=== PATIENT | female | born 1940 | race Caucasian/White ===

== ENCOUNTER 2021-02-27 10:40 | Day surgery (SDC) | payer MEDICARE ==
[~2021-02-27] VITALS: Ht 147.3 cm; Wt 125.8 kg
[2021-02-27 11:47] VITALS: BP 183/71
[2021-02-27] MEDS ORDERED: GLIPIZIDE PO (11:47)
[2021-02-27] MEDS ORDERED: HYDR12.517 PO (11:47)
[2021-02-27 11:57] LABS: ALANINE AMINOTRANSFERASE 26 U/L (12-78); ALBUMIN 3.8 g/dL (3.4-5.0); ANION GAP 5 mmol/L (5-15); CALCIUM 9.6 mg/dL (8.5-10.1); CHLORIDE 105 mmol/L (98-107); CREATININE 1.24 mg/dL (0.55-1.02)
[2021-02-27 11:59] LABS: ALKALINE PHOSPHATASE 147 U/L (45-117); BILIRUBIN,TOTAL 1.1 mg/dL (0.2-1.0); TOTAL PROTEIN 8.2 g/dL (6.4-8.2)
[2021-02-27] MEDS ORDERED: LACTATED RINGERS 1,000 ML IV SCH (12:00)
[2021-02-27] MEDS ORDERED: CHLORHEXIDINE 15 ML UDC PO ONE (12:00)
[2021-02-27] MEDS ORDERED: FENTANYL PF 100 MCG/2ML ONE (14:15)
[2021-02-27] MEDS ORDERED: BUPIVACAINE/PF 0.5% ONE (14:30)
[2021-02-27] MEDS ORDERED: EPINEPHRINE 1 MG/ML, 1ML ONE (14:30)
[2021-02-27] MEDS ORDERED: NEOSPORIN OINT, 15GM ONE (14:33)
[2021-02-27] MEDS ORDERED: DEXAMETHASONE 4 MG/ML, 1ML ONE (14:54)
[2021-02-27] MEDS ORDERED: PROPOFOL 10 MG/ML, 20ML ONE (15:58)
[2021-02-27] MEDS ORDERED: ONDANSETRON 2MG/ML, 2ML ONE (15:58)
[2021-02-27] MEDS ORDERED: CEFAZOLIN 1,000 MG ONE (15:58)
[2021-02-27] MEDS ORDERED: OXYcodone 5 MG/5 ML ORAL.SOL UDC PO PRN (16:00)
[2021-02-27] MEDS ORDERED: hydrALAzine 20 MG/ML, 1ML IV PRN (16:00)
[2021-02-27] MEDS ORDERED: HYDROmorphone 1 MG/ML, 1ML INJ IVPush PRN (16:00)
[2021-02-27] MEDS ORDERED: ALBUTEROL SULFATE 2.5 MG/3 ML NPPB PRN (16:00)
[2021-02-27] MEDS ORDERED: FENTANYL PF 100 MCG/2ML IV PRN (16:00)
[2021-02-27] MEDS ORDERED: ACETAMINOPHEN 325 MG TABLET PO PRN (16:00)
[2021-02-27] MEDS ORDERED: PROMETHAZINE 25 MG/ML, 1ML IVPush PRN (16:00)
[2021-02-27] MEDS ORDERED: LABETALOL 5MG/ML, 20ML IV PRN (16:00)
== END 2021-02-27 18:20 | disposition home or self-care (01) ==
LOC: OUT 10:40
PROVIDERS: ATTEND Orthopaedic Surgery
DX: S82.041A Displaced comminuted fracture of right patella, initial encounter for closed fracture (principal); G89.18 Other acute postprocedural pain; I10 Essential (primary) hypertension; E11.9 Type 2 diabetes mellitus without complications; J44.9 Chronic obstructive pulmonary disease, unspecified; Z20.822 Contact with and (suspected) exposure to COVID-19; Z79.84 Long term (current) use of oral hypoglycemic drugs; Z79.899 Other long term (current) drug therapy; Z87.891 Personal history of nicotine dependence; Z91.040 Latex allergy status; W18.39XA Other fall on same level, initial encounter; Y93.89 Activity, other specified; Y92.89 Other specified places as the place of occurrence of the external cause; Y99.8 Other external cause status
CPT/HCPCS: 27524; 36415; 64447; 73560; 80053; 87635; 93005; C1713; J0690; J1100; J2405; J2704; J3010; J7120; 76000; J0171